=== PATIENT | male | born 1945 | race Caucasian/White ===

== ENCOUNTER 2016-11-28 14:00 | Inpatient (IN) | payer OTHER, MEDICARE ==
[~2016-11-28] VITALS: Ht 170.1 cm; Wt 74.6 kg
--- NOTE | ~2016-11-28 | PROC NOTE ---
[place], [place] PROCEDURE NOTE NAME: HARRY SCOTT [facility] #: [id number] UNIT #: [id number] ROOM: 508 DOCTOR: JORGE CORNELIUS BIRTHDATE: [birth year] DOS: 12/01/2016 MODIFIED BARIUM SWALLOW. LOCATION: [facility], room 508, bed 1. ORDERING PHYSICIAN: Dr. Laird. RADIOLOGIST: Dr. Alba. BACKGROUND INFORMATION: The patient, a 71-year-old male, who was seen for modified barium swallow. This test was ordered to rule out aspiration. The patient is diagnosed with pneumonia and severe sepsis. Further medical history includes angina enlarged prostate, blockages in legs, anxiety and DM. The patient was admitted to the Emergency Department with acute shortness of breath and coughing up blood. The patient currently receives a regular diet and thin liquids. The patient denies any difficulty chewing or swallowing. For the assessment, he was alert and able to follow all commands. Respiratory status was within normal limits. Occasional cough was displayed at rest. Oral peripheral examination revealed presence of upper and lower denture with adequate fit reported. Lingual, labial, and buccal skills were within normal limits in terms of strength, range of motion, and coordination. The patient was able to volitionally cough and swallow. METHODS AND MATERIALS USED FOR THE EXAM: The patient was positioned in the lateral plane and the examination was viewed under fluoroscopy. The patient was presented with a variety of consistencies to assess swallowing skills including applesauce mixed with barium presented in half teaspoon amounts, barium-coated cookie presented in bite sized pieces and thin liquid barium taken by cup. The patient swallowed in both single and consecutive sips sized amounts. Straw drinking was not assessed as the patient reported that he never uses a straw. ORAL PHASE: Unremarkable. PHARYNGEAL PHASE: The pharyngeal swallow occurred within a timely manner. the swallow, laryngeal elevation and epiglottic function were adequate. The patient displayed no penetration or aspiration with pureed, solid or thin liquid taken in single sip by cup. He did display transient upper airway penetration when consecutive sips by cup were taken. No residue remained in the vallecula or pyriform post-swallow. IMPRESSIONS AND RECOMMENDATIONS: Based upon assessment results, this patient displayed swallowing skills that are within functional limits. Transient upper airway penetration did occur with thin liquids when taken in consecutive sip size amounts. This did not occur with single sip or with any other consistency. No aspiration occurred during this exam. It is recommended that the patient remain on present diet and consume liquids in single sip size amount. No followup therapy is warranted. The patient was educated on results and recommendations and verbalized understanding and agreement stating that he is aware that he eats and drinks fast and will slow down with liquids. Results and [place], [place] PROCEDURE NOTE NAME: HARRY SCOTT UNIT #: [id number] ROOM: 508 DOCTOR: JORGE CORNELIUS BIRTHDATE: [birth year] recommendations were also shared with the patient's nurse who verbalized understanding. Thank you very much for this referral. Should you have any questions regarding this patient, please contact the speech pathologist at [phone]. JORGE CORNELIUS NATHALY LAIRD DO CM:PROCNOTE:PROCEDURE NOTE [id number] JORGE CORNELIUS
--- NOTE | ~2016-11-28 | PR ---
[place], [place] PROGRESS NOTE [facility] [id number] UNIT #: [id number] ROOM: 508 DOCTOR: CATALINA ESPOSITO MD,EDU BIRTHDATE: [birth year] DOS: 12/01/2016 SUBJECTIVE: He continued to show reduction and improvement of respiratory symptom. Coughing has been noted almost absent. Shortness of breath has been absent. Denies symptoms of chest pain. OBJECTIVE: VITAL SIGNS: Recorded showed normal temperature, respirations 16, heart rate of 86, blood pressure 135/58 this morning. Pulse oxygen saturation on room air 95% saturation. HEENT: Examination shows no new change. NECK: Supple. CARDIOVASCULAR: S1, S2 audible. LUNGS: Shows crackles in the lungs on the left side. Right lung was clear. ABDOMEN: Soft, nontender. LABORATORY DATA: CBC that was done this morning shows WBC count normal, hemoglobin 10.2, hematocrit 31.5, platelet count was normal. The culture of the sputum, normal kayla. BMP this morning noted as normal BUN and creatinine and electrolytes. Chest x-ray of the patient that was done this morning for the patient shows the infiltration, has been decreasing in the left lung but not completely resolved. IMPRESSION: Acute pneumonia secondary to acute aspiration during colonoscopy, currently being treated and responding to treatment for the gram-positive infection. PLAN OF MANAGEMENT: The patient could be discharged home whenever necessary on oral Augmentin ____ medication for the completion of the management of the pneumonia. Continue other supportive therapy, plan of care and treatment. Usual medical management with other therapies. EDU ARNOLD MD CM:PNTRANS [id number] EDU ESPOSITO MD 12/01/16 1556 interface
--- NOTE | ~2016-11-28 | PR ---
[place], [place] PROGRESS NOTE NAME: HARRY SCOTT [facility] #: [id number] UNIT #: [id number] ROOM: 508 DOCTOR: CATALINA ESPOSITO MDEDU BIRTHDATE: [birth year] DOS: 11/29/2016 REQUESTING PHYSICIAN: Hospitalist services for the assessment of current acute respiratory symptoms with the pneumonia. HISTORY OF PRESENT ILLNESS: A 71-year-old white male, who has been noted in his usual state of health. The patient underwent colonoscopy in one of the hospitals in [place], [place]. He came home. The patient has been doing well. About 48 hours later, he developed symptoms of severe chills and shortness of breath as well as a nonproductive cough. The patient was advised by his daughter, who is a nurse to come to the [facility] Emergency Room. The patient came to the Emergency Room. He has been assessed and hospitalized at this time. The patient was noted with symptoms of shortness breath for this patient, which were noted significantly. He denies symptoms of chest pain. The patient does complain of symptoms of hemoptysis, which was noted only small amount for this patient, has been resolved at this time. He denies any symptoms of wheezing. REVIEW OF SYSTEMS: CONSTITUTIONAL: Fatigue and tiredness noted without symptoms of fever or chills. EYES: Denies any burning, redness, or tenderness. EARS, NOSE, THROAT SYMPTOMS: No sore throat, hoarseness, otalgia, postnasal drainage or epistaxis. CARDIOVASCULAR: Denies anginal pain, edema or pain of the lower extremities. GASTROINTESTINAL: Denies dysphagia, nausea, vomiting, diarrhea, abdominal pain, hematemesis, melena, or hematochezia. SKIN: Denies any lesions or rashes. MUSCULOSKELETAL: Denies acute joint pain, redness or tenderness. CENTRAL NERVOUS SYSTEM: Denies dizziness, headache, diplopia or syncopal episodes. Remaining systems were reviewed with the patient, they were noted all negative. PAST MEDICAL HISTORY: 1. The patient was known with history of BPH. 2. Type 2 diabetes mellitus. 3. Essential hypertension. SOCIAL HISTORY: The patient stated that he is and has 5 children. Smoking history was known from the age of [age] years old, a pack of cigarettes per day that was discontinued in year 1999. Denies any history of alcohol use or any illicit drugs. Denies occupation related pulmonary exposure history. FAMILY HISTORY: Mother at the age of 9090 years old from old age. Father at age of 7373 years old, complications of colon cancer. ALLERGIES: The drug allergy history was noted for the patient as no known drug allergies. [place], [place] PROGRESS NOTE NAME: HARRY SCOTT UNIT #: [id number] ROOM: 508 DOCTOR: CATALINA ESPOSITO MD,EDU BIRTHDATE: [birth year] MEDICATIONS: Currently, administered medications noted use of Mucinex, Lovenox 80 mg b.i.d., DuoNeb, Levaquin every 48 hours, Xanax and other p.r.n. medications administration. PHYSICAL EXAMINATION: GENERAL: A 71-year-old white male who has been currently noted comfortably sitting on the side of the bed without any distress at the time of the assessment. The patient's height was recorded 5 feet 7 inches, weight 164 pounds, BMI 25.7. VITAL SIGNS: Shows a normal temperature, respiratory rate 18. The heart rate of 130-101 beats per minute. The blood pressure noted as 81/69-135/66. HEENT: Oral mucosa noted moist. NECK: Supple. Head was atraumatic. CARDIOVASCULAR: S1, S2 audible. LUNGS: Showed decreased breath sounds and the patient was noted with scattered crackles in the left lung. The right lung was noted clear. There was no wheezing. ABDOMEN: Soft, nontender and flat. EXTREMITIES: Showed no edema, clubbing or cyanosis. LABORATORY DATA: CBC on admission, for the patient on 11/28/2016 showed WBC count 5.4, hemoglobin 11.2, hematocrit 35.5, platelet count of 167,000 with 85% segmented neutrophil. Lactic acid noted 4.2 and subsequent lactic acid was noted normal within 24 hours. The CMP of the patient that was done on 11/28/2016, BUN 29, creatinine 1.88, glucose 218. Remaining CMP was normal. Troponin for the patient first set yesterday was noted as normal. BMP of the patient that was done this morning, BUN 27, creatinine 1.40, glucose was noted as 121. Phosphorus 2.2, magnesium 1.3. PT/PTT this morning were noted as INR 1.4, PTT of 38.7. CBC this morning, WBC count 7.7, hemoglobin 9.3, hematocrit 28.4, platelet count 116,000. Culture of the sputum for the patient was pending. Gram Stain which was done this morning, many white blood cells, moderate epithelial cells, many gram-positive cocci in pairs and clusters, few gram-negative bacilli. The patient had a CT scan of the abdomen done on 11/28/2016 for the patient was reviewed, does not show any acute intraabdominal pathology. Area of consolidation, infiltration in the left lower lobe was noted. A small pleural fluid was also noted. The chest x-ray of the patient that was done on 11/28/2016 shows evidence of infiltration noted in the left lung. CT of the chest for the patient was also done for this patient this morning at 10:35, was personally reviewed. There was no evidence of pulmonary embolism noted in the major pulmonary arterial branches. The patient was noted with significant infiltration with alveolar filling for this patient as well as consolidation present predominantly on the left side of the lung with multilobar involvement. A small left pleural fluid in the patient was also noted. Some changes of emphysema for the patient was also noted for the patient with centrilobular emphysema in the upper lung. A small patchy infiltration noted in the right lung. IMPRESSION: 1. The patient who has been currently admitted to the hospital with signs and [place], [place] PROGRESS NOTE [facility]: [id number] UNIT #: [id number] ROOM: 508 DOCTOR: EDU DE SANTIAGO MD BIRTHDATE: [birth year] symptoms consistent with acute severe sepsis with multiorgan involvement. The patient in hypertension with acute kidney injury and aspiration pneumonia. The aspiration pneumonia, most likely has occurred as the patient related in the lateral body position for this patient and was given conscious sedation with colonoscopy. The sinus symptoms classically occur for this patient after 24 hours of the procedure completion with acute bacterial pneumonia at this time was suspected. 2. Small pleural fluid related to current bacteremia, acute pneumonia. Thrombocytopenia was also noted in the CBC today as 116,000 platelet count related to the underlying acute sepsis. 3. Lactic acidosis secondary to the current hypertension and acute severe sepsis. PLAN OF MANAGEMENT: There was no evidence of pulmonary embolism for this patient. The electrocardiogram of the patient shows essentially sinus tachycardia with incomplete left bundle branch block for this patient. Some ST segment elevation was also noted, but the troponin was noted as negative. The Lovenox, which was given therapeutic with suspicion of pulmonary embolism, will be discontinued and switched only deep vein thrombosis prophylaxis range. Mild hemoptysis, sputum in the patient noted secondary to current acute pneumonia as well. Pleural fluid was noted small at this time, would not require any intervention for this patient, which will be monitored and assessment with the chest x-ray of the patient. Obtain a chest x-ray tomorrow morning. Readjusted dose of the Levaquin for the patient because of the improvement in the kidney functions noted changes to once a day dosing. Monitor results of the sputum culture and blood cultures. Usual care, other supportive therapy, plan of management. Ordered the streptococcal antigen of the urine for the patient as well as the legionella antigen. Oxygen supplementation if necessary to maintain a saturation of 92% or greater. Usual care, other supportive therapy, plan of management. Thanks for allowing me to participate in the care of this patient. [place], [place] PROGRESS NOTE [facility]: [facility]: [id number] UNIT #: [id number] ROOM: 508 DOCTOR: EDU DE SANTIAGO MD BIRTHDATE: [birth year] EDU ARNOLD MD CM:PNTRANS [id number] EDU ESPOSITO MD 11/30/16 1350 interface
--- NOTE | ~2016-11-28 | PR ---
[place], [place] PROGRESS NOTE NAME: HARRY SCOTT UNIT #: [id number] ROOM: 508 DOCTOR: EDU DE SANTIAGO MD BIRTHDATE: [birth year] DOS: 11/30/2016 PULMONARY FOLLOWUP SUBJECTIVE: He has been ambulating showing reduction of the respiratory symptom. Denies symptoms of chest pain. Denies any abdominal pain. Denies any wheezing. OBJECTIVE: VITAL SIGNS: Showed a temperature noted as 100.6 degrees Fahrenheit at midnight. Respiratory rate 18-22, heart rate 105-116, blood pressure 110/68-100/68. Pulse oxygen saturation on room air was 96% saturation. HEENT: Examination shows no new change. NECK: Supple. CARDIOVASCULAR: S1, S2 is audible. LUNGS: The patient noted scattered crackles of the left lung. There was no wheezing. ABDOMEN: Soft, nontender. LABORATORY DATA: Blood culture from the 11/28/2016 does not show any bacterial growth. Culture of the sputum preliminary showing normal kayla. The Gram stain shows many white blood cells, moderate epithelial cells, many gram-positive cocci in pairs and clusters with rare gram-negative bacilli. The CMP of the patient that was done this morning shows normal BUN and creatinine. Potassium noted mildly decreased at 3.4. CBC, mild anemia, otherwise noted stable. IMPRESSION: The patient without an acute pneumonia was noted secondary to acute aspiration. Allergic drug reaction was also considered. PLAN OF MANAGEMENT: Continuation of current antibiotics. Monitor culture results of the sputum. Obtain a chest x-ray in the morning for this patient to reassess prior to consider possible home discharge on oral antibiotics. Other supportive therapy, plan of management and care. [place], [place] PROGRESS NOTE NAME: HARRY SCOTT UNIT #: [id number] ROOM: 508 DOCTOR: EDU DE SANTIAGO MD BIRTHDATE: [birth year] EDU ARNOLD MD CM:PNTRANS [id number] EDU ESPOSITO MD 12/01/16 0640 interface
--- NOTE | ~2016-11-28 | EKG ---
[place], [place] ELECTROCARDIOGRAM REPORT NAME: HARRY SOCTT UNIT #: [id number] ROOM: 508 DOCTOR: CATALINA ESPOSITO MD,EDU BIRTHDATE: [birth year] DOS: 11/28/2016 ELECTROCARDIOGRAM The underlying rhythm noted as normal sinus rhythm with heart rate of 121 beats per minute. Possibility of incomplete left bundle branch block for this patient being considered. Elevation in the ST segment in V1, V2 and V3, unknown clinical significance. Nonspecific ST-T changes were also noted as well. Clinical correlation would be advised. EDU ARNOLD MD CM:EKGRPT:ELECTROCARDIOGRAM REPORT [id number] EDU ESPOSITO MD
[2016-11-28 14:00] VITALS: BP 104/52
[~2016-11-28 14:00] MED LIST: ATIVAN1 MG PO; DAYPRO600 M1 PO; LEVAQUIN750 MG PO; [UNRECOGNIZED DRUG - REMARK]
[2016-11-28 14:41] LABS: HEMATOCRIT 35.5 % (42.0-52.0); HEMOGLOBIN 11.3 g/dl (14.0-18.0); MEAN CELL VOLUME 85.7 fl (80.0-94.0); MEAN CORPUSCULAR HGB 27.3 pg (27.0-31.0); MEAN CORPUSCULAR HGB CONC 31.8 g/dl (33.0-37.0); MEAN PLATELET VOLUME 10.5 fl (9.6-12.3); PLATELET COUNT AUTOMATED 167 10*3/uL (130-400); RED BLOOD COUNT 4.14 10*6/uL (4.50-5.90); RED CELL DISTRI WIDTH 14.3 % (0-14.5); WHITE BLOOD COUNT 5.4 10*3/uL (4.8-10.8)
[2016-11-28 14:57] VITALS: BP 86/53
[2016-11-28 14:58] LABS: ALBUMIN 3.2 gm/dl (3.1-4.5); CREATININE 1.88 mg/dL (0.70-1.30); POTASSIUM 4.5 mmol/L (3.5-5.1); TOTAL PROTEIN 6.3 gm/dL (6.4-8.2)
[2016-11-28 14:59] LABS: TROPONIN I 0.034 ng/ml (<0.045)
[2016-11-28 15:08] LABS: OVALOCYTES FEW; PLATELET SUFFICIENCY NORMAL (NORMAL); TOTAL CELLS COUNTED 100 #CELLS
[2016-11-28 15:09] LABS: BURR CELLS FEW
[2016-11-28 16:10] VITALS: BP 86/50
[2016-11-28 16:12] VITALS: BP 81/69
[2016-11-28 17:15] VITALS: BP 102/52
[2016-11-28 20:00] VITALS: BP 117/59
[2016-11-29] VITALS: BP 93/71
[2016-11-29 06:07] LABS: BUN 27 mg/dl (7-24); CHLORIDE 110 mmol/L (98-107); MAGNESIUM 1.3 mg/dL (1.5-2.1); PHOSPHOROUS 2.2 mg/dL (2.5-4.9); POTASSIUM 4.1 mmol/L (3.5-5.1); SODIUM 139 mmol/L (136-145)
[2016-11-29 06:16] LABS: HEMOGLOBIN 9.3 g/dl (14.0-18.0); MEAN CELL VOLUME 85.3 fl (80.0-94.0); MEAN CORPUSCULAR HGB 27.9 pg (27.0-31.0); MEAN CORPUSCULAR HGB CONC 32.7 g/dl (33.0-37.0); MEAN PLATELET VOLUME 11.8 fl (9.6-12.3); RED BLOOD COUNT 3.33 10*6/uL (4.50-5.90); RED CELL DISTRI WIDTH 14.7 % (0-14.5); WHITE BLOOD COUNT 7.7 10*3/uL (4.8-10.8)
[2016-11-29 06:18] LABS: HEMATOCRIT 28.4 % (42.0-52.0); PLATELET COUNT AUTOMATED 116 10*3/uL (130-400)
[2016-11-29 06:20] LABS: ACT PARTIAL THROMBO TIME 38.7 SECONDS (20.8-31.5); INTERNATIONAL NORM RATIO 1.4 (2.0-3.5)
[2016-11-29 06:46] LABS: PLATELET SUFFICIENCY LOW (NORMAL); TOTAL CELLS COUNTED 100 #CELLS; VITAMIN D, 25-HYDROXY 38.8 ng/mL (30-100)
[2016-11-29 07:38] VITALS: BP 106/65; BP 110/70; BP 139/71
[2016-11-29 11:44] VITALS: BP 135/66
[2016-11-29 16:00] VITALS: BP 136/64
[2016-11-29] MEDS ORDERED: ASPIRIN ADULT L81 M1 PO (17:31)
[2016-11-29] MEDS ORDERED: OMEPRAZOLE20 M2 PO (17:32)
[2016-11-29] MEDS ORDERED: TERAZOSIN HCL5 M1 PO (17:33)
[2016-11-29] MEDS ORDERED: ZESTRIL10 MG PO (17:33)
[2016-11-29] MEDS ORDERED: SIMVASTATIN80 MG PO (17:34)
[2016-11-29] MEDS ORDERED: CILOSTAZOL100 MG PO (17:34)
[2016-11-29] MEDS ORDERED: GLUCOPHAGE500 M1 PO (17:35)
[2016-11-29] MEDS ORDERED: NOVOLIN 70100 UNIT/1 SC (17:41)
[2016-11-29 20:00] VITALS: BP 132/85
[2016-11-30] VITALS: BP 147/59
[2016-11-30 06:35] LABS: BASO % 0.2 % (0.0-1.0); EOS % 0.2 % (1.0-4.0); HEMATOCRIT 30.7 % (42.0-52.0); HEMOGLOBIN 9.9 g/dl (14.0-18.0); LYMPH # 0.7 10*3/uL (1.3-4.4); LYMPH % 7.7 % (27.0-41.0); MEAN CELL VOLUME 84.8 fl (80.0-94.0); MEAN CORPUSCULAR HGB 27.3 pg (27.0-31.0); MEAN CORPUSCULAR HGB CONC 32.2 g/dl (33.0-37.0); MEAN PLATELET VOLUME 11.9 fl (9.6-12.3); MONO # 0.6 10*3/uL (0.1-1.0); MONO % 7.3 % (3.0-9.0); NEUT # 7.3 10*3/uL (2.3-7.9); NEUT % 82.9 % (47.0-73.0); PLATELET COUNT AUTOMATED 138 10*3/uL (130-400); RED BLOOD COUNT 3.62 10*6/uL (4.50-5.90); RED CELL DISTRI WIDTH 15.1 % (0-14.5); WHITE BLOOD COUNT 8.8 10*3/uL (4.8-10.8)
[2016-11-30 07:06] LABS: ALBUMIN 2.8 gm/dl (3.1-4.5); ALKALINE PHOSPHATASE 51 U/L (45-117); BUN 19 mg/dl (7-24); CHLORIDE 107 mmol/L (98-107); CREATININE 1.17 mg/dL (0.70-1.30); POTASSIUM 3.4 mmol/L (3.5-5.1); SGOT/AST 12 IU/L (3-35); SGPT/ALT 15 U/L (12-78); SODIUM 139 mmol/L (136-145); TOTAL PROTEIN 6.2 gm/dL (6.4-8.2)
[2016-11-30 08:00] VITALS: BP 100/68
[2016-11-30 12:00] VITALS: BP 110/68
[2016-11-30 16:00] VITALS: BP 100/60
[2016-11-30 20:00] VITALS: BP 122/71
[2016-12-01] VITALS: BP 139/63
[2016-12-01 07:08] LABS: BASO % 0.4 % (0.0-1.0); EOS # 0.2 10*3/uL (0.0-0.4); EOS % 1.9 % (1.0-4.0); HEMATOCRIT 31.5 % (42.0-52.0); HEMOGLOBIN 10.3 g/dl (14.0-18.0); LYMPH # 0.9 10*3/uL (1.3-4.4); LYMPH % 10.8 % (27.0-41.0); MEAN CELL VOLUME 85.6 fl (80.0-94.0); MEAN CORPUSCULAR HGB CONC 32.7 g/dl (33.0-37.0); MEAN PLATELET VOLUME 11.4 fl (9.6-12.3); MONO # 0.4 10*3/uL (0.1-1.0); MONO % 5.4 % (3.0-9.0); NEUT # 6.4 10*3/uL (2.3-7.9); NEUT % 80.6 % (47.0-73.0); PLATELET COUNT AUTOMATED 170 10*3/uL (130-400); RED BLOOD COUNT 3.68 10*6/uL (4.50-5.90); RED CELL DISTRI WIDTH 15.1 % (0-14.5); WHITE BLOOD COUNT 7.9 10*3/uL (4.8-10.8)
[2016-12-01 07:31] LABS: CHLORIDE 108 mmol/L (98-107); SODIUM 139 mmol/L (136-145)
[2016-12-01 07:48] LABS: BUN 21 mg/dl (7-24); CREATININE 1.17 mg/dL (0.70-1.30)
[2016-12-01 07:52] LABS: POTASSIUM 4.7 mmol/L (3.5-5.1)
[2016-12-01 08:00] VITALS: BP 135/58
[2016-12-01] MEDS ORDERED: LEVAQUIN750 M1 PO (10:32)
[2016-12-01] MEDS ORDERED: MUCINEX ER600 MG PO (10:33)
== END 2016-12-01 12:00 | disposition home or self-care (01) | DRG 871 ==
LOC: ED 14:00 → 5E 15:21 → EDHOLD 15:21 → 5E 15:33
PROVIDERS: Emergency Medicine; Internal Medicine; ADMIT Internal Medicine
PROC: BD1BYZZ Fluoroscopy of Mouth/Oropharynx using Other Contrast (ICD-10-PCS; principal; 2016-12-01)
DX: A41.9 Sepsis, unspecified organism (principal); J69.0 Pneumonitis due to inhalation of food and vomit; N17.0 Acute kidney failure with tubular necrosis; E44.0 Moderate protein-calorie malnutrition; E87.2 Acidosis; E11.65 Type 2 diabetes mellitus with hyperglycemia; D69.6 Thrombocytopenia, unspecified; R65.20 Severe sepsis without septic shock; D64.9 Anemia, unspecified; E83.42 Hypomagnesemia; N40.0 Benign prostatic hyperplasia without lower urinary tract symptoms; F13.10 Sedative, hypnotic or anxiolytic abuse, uncomplicated; I10 Essential (primary) hypertension; Z80.0 Family history of malignant neoplasm of digestive organs; Z82.0 Family history of epilepsy and other diseases of the nervous system; Z79.4 Long term (current) use of insulin; Z68.25 Body mass index [BMI] 25.0-25.9, adult

== ENCOUNTER → 2016-12-18 | Outpatient (CLI) | payer OTHER, MEDICARE ==
[~2016-12-18] MED LIST changes: +ASPIRIN ADULT L81 M1 PO; +CILOSTAZOL100 MG PO; +GLUCOPHAGE500 M1 PO; +LEVAQUIN750 M1 PO; +MUCINEX ER600 MG PO; +NOVOLIN 70100 UNIT/1 SC; +OMEPRAZOLE20 M2 PO; +SIMVASTATIN80 MG PO; +TERAZOSIN HCL5 M1 PO; +ZESTRIL10 MG PO
== END | disposition home or self-care (01) ==
LOC: US 12:37
DX: R94.6 Abnormal results of thyroid function studies (principal)

== ENCOUNTER 2017-04-23 13:09 | Emergency (ER) | payer OTHER, MEDICARE ==
[~2017-04-23] VITALS: Ht 170.1 cm; Wt 74.8 kg
[2017-04-23 13:15] VITALS: BP 152/66
[2017-04-23] MEDS ORDERED: Tobrex Ophth S2.5 ML OPH (13:21)
== END 2017-04-23 13:30 | disposition home or self-care (01) ==
LOC: ED 13:09
DX: S05.02XA Injury of conjunctiva and corneal abrasion without foreign body, left eye, initial encounter (principal); E11.65 Type 2 diabetes mellitus with hyperglycemia; I10 Essential (primary) hypertension; Z87.891 Personal history of nicotine dependence; Z98.890 Other specified postprocedural states; Z79.899 Other long term (current) drug therapy; Z79.4 Long term (current) use of insulin; Z79.82 Long term (current) use of aspirin; X58.XXXA Exposure to other specified factors, initial encounter; Y93.89 Activity, other specified; Y92.89 Other specified places as the place of occurrence of the external cause; Y99.9 Unspecified external cause status

== ENCOUNTER 2020-10-24 18:56 | Inpatient (IN) | payer MEDICARE ==
[2020-10-24] VITALS (9 sets, daily range): BP systolic 86–166; BP diastolic 42–88
[~2020-10-24] VITALS: Ht 167.6 cm; Wt 68.2 kg
[~2020-10-24 18:56] MED LIST changes: +DOXYCYCLINE100 M3 PO; +HYDROCODONE-AC1 EAC1 PO; +LOPRESSOR25 MG PO; +SSD25 GM T; +TADALAFIL20 M1 PO; +Tobrex Ophth S2.5 ML OPH
[2020-10-24 19:55] LABS: BASO % 0.2 % (0.0-1.0); EOS # 0.1 10*3/uL (0.0-0.4); EOS % 0.6 % (1.0-4.0); HEMATOCRIT 27.2 % (42.0-52.0); LYMPH # 0.4 10*3/uL (1.3-4.4); LYMPH % 4.8 % (27.0-41.0); MEAN CELL VOLUME 82.2 fl (80.0-94.0); MEAN CORPUSCULAR HGB 24.8 pg (27.0-31.0); MEAN CORPUSCULAR HGB CONC 30.1 g/dl (33.0-37.0); MEAN PLATELET VOLUME 10.7 fl (9.6-12.3); MONO # 0.5 10*3/uL (0.1-1.0); MONO % 5.7 % (3.0-9.0); NEUT # 8.1 10*3/uL (2.3-7.9); NEUT % 87.8 % (47.0-73.0); PLATELET COUNT AUTOMATED 185 10*3/uL (130-400); RED BLOOD COUNT 3.31 10*6/uL (4.50-5.90); RED CELL DISTRI WIDTH 15.8 % (0-14.5); WHITE BLOOD COUNT 9.3 10*3/uL (4.8-10.8)
[2020-10-24 20:25] LABS: ALBUMIN 2.9 gm/dl (3.1-4.5); ALKALINE PHOSPHATASE 57 U/L (45-117); BUN 59 mg/dl (7-24); CHLORIDE 109 mmol/L (98-107); CREATININE 2.45 mg/dL (0.70-1.30); POTASSIUM 5.2 mmol/L (3.5-5.1); SGOT/AST 10 IU/L (3-35); SGPT/ALT 15 U/L (12-78); SODIUM 135 mmol/L (136-145); TOTAL PROTEIN 6.4 gm/dL (6.4-8.2)
[2020-10-24 20:26] LABS: TROPONIN I < 0.015 ng/ml (<0.045)
[2020-10-24 21:01] LABS: BILIRUBIN Negative (Negative); BLOOD Trace-Intact (Negative); CLARITY Cloudy (Clear); COLOR Yellow (Yellow); GLUCOSE Negative (Negative); KETONE Trace (Negative); LEUKO ESTERASE 3+ (Negative); NITRITE Negative (Negative); SPECIFIC GRAVITY 1.015 (1.001-1.030)
[2020-10-24 21:25] LABS: BACTERIA 2+; WBC 41-50 wbc/hpf (0-5); YEAST 1+
[2020-10-25 06:20] LABS: ALBUMIN 2.5 gm/dl (3.1-4.5); POTASSIUM 4.6 mmol/L (3.5-5.1)
[2020-10-25 06:26] LABS: CREATININE 1.88 mg/dL (0.70-1.30); FREE T4 1.42 ng/dl (0.76-1.46); THYROID STIM HORMONE (HS) 0.26 uIU/ml (0.358-4.75); TOTAL PROTEIN 5.8 gm/dL (6.4-8.2)
[2020-10-25 06:36] LABS: BASO % 0.4 % (0.0-1.0); EOS # 0.1 10*3/uL (0.0-0.4); HEMATOCRIT 24.3 % (42.0-52.0); LYMPH # 0.7 10*3/uL (1.3-4.4); LYMPH % 13.9 % (27.0-41.0); MEAN CELL VOLUME 82.1 fl (80.0-94.0); MEAN CORPUSCULAR HGB 24.3 pg (27.0-31.0); MEAN CORPUSCULAR HGB CONC 29.6 g/dl (33.0-37.0); MEAN PLATELET VOLUME 11.7 fl (9.6-12.3); MONO # 0.3 10*3/uL (0.1-1.0); MONO % 6.8 % (3.0-9.0); NEUT # 3.8 10*3/uL (2.3-7.9); NEUT % 75.9 % (47.0-73.0); PLATELET COUNT AUTOMATED 175 10*3/uL (130-400); RED BLOOD COUNT 2.96 10*6/uL (4.50-5.90); RED CELL DISTRI WIDTH 15.8 % (0-14.5)
[2020-10-25 08:36] LABS: VITAMIN D, 25-HYDROXY 69.3 ng/mL (30-100)
[2020-10-25 09:28] VITALS: BP 124/59
[2020-10-25 11:38] VITALS: BP 141/66
[2020-10-25 16:22] VITALS: BP 131/61
[2020-10-25 20:00] VITALS: BP 139/67
[2020-10-26] VITALS (7 sets, daily range): BP systolic 92–196; BP diastolic 67–82
[2020-10-26 06:32] LABS: BASO % 0.5 % (0.0-1.0); EOS # 0.1 10*3/uL (0.0-0.4); EOS % 3.4 % (1.0-4.0); HEMATOCRIT 26.2 % (42.0-52.0); LYMPH % 25.5 % (27.0-41.0); MEAN CELL VOLUME 82.1 fl (80.0-94.0); MEAN CORPUSCULAR HGB 24.5 pg (27.0-31.0); MEAN CORPUSCULAR HGB CONC 29.8 g/dl (33.0-37.0); MEAN PLATELET VOLUME 11.2 fl (9.6-12.3); MONO # 0.5 10*3/uL (0.1-1.0); MONO % 13.1 % (3.0-9.0); NEUT # 2.2 10*3/uL (2.3-7.9); PLATELET COUNT AUTOMATED 212 10*3/uL (130-400); RED BLOOD COUNT 3.19 10*6/uL (4.50-5.90); RED CELL DISTRI WIDTH 15.6 % (0-14.5); WHITE BLOOD COUNT 3.9 10*3/uL (4.8-10.8)
[2020-10-26 06:48] LABS: ALBUMIN 2.7 gm/dl (3.1-4.5); ALKALINE PHOSPHATASE 60 U/L (45-117); CHLORIDE 114 mmol/L (98-107); CREATININE 1.32 mg/dL (0.70-1.30); POTASSIUM 4.7 mmol/L (3.5-5.1); SGOT/AST 16 IU/L (3-35); SGPT/ALT 22 U/L (12-78); SODIUM 140 mmol/L (136-145); TOTAL PROTEIN 6.2 gm/dL (6.4-8.2)
[2020-10-26 06:51] LABS: BUN 30 mg/dl (7-24)
[2020-10-27 03:45] VITALS: BP 187/75
[2020-10-27 06:00] VITALS: BP 172/66
[2020-10-27 06:35] LABS: BASO % 0.6 % (0.0-1.0); EOS # 0.1 10*3/uL (0.0-0.4); EOS % 2.1 % (1.0-4.0); HEMATOCRIT 28.1 % (42.0-52.0); LYMPH # 1.1 10*3/uL (1.3-4.4); LYMPH % 21.3 % (27.0-41.0); MEAN CELL VOLUME 81.2 fl (80.0-94.0); MEAN CORPUSCULAR HGB 24.3 pg (27.0-31.0); MEAN CORPUSCULAR HGB CONC 29.9 g/dl (33.0-37.0); MEAN PLATELET VOLUME 10.8 fl (9.6-12.3); MONO # 0.6 10*3/uL (0.1-1.0); MONO % 10.7 % (3.0-9.0); NEUT # 3.4 10*3/uL (2.3-7.9); NEUT % 63.4 % (47.0-73.0); PLATELET COUNT AUTOMATED 220 10*3/uL (130-400); RED BLOOD COUNT 3.46 10*6/uL (4.50-5.90); RED CELL DISTRI WIDTH 15.6 % (0-14.5); WHITE BLOOD COUNT 5.3 10*3/uL (4.8-10.8)
[2020-10-27 06:46] LABS: BUN 21 mg/dl (7-24); CHLORIDE 109 mmol/L (98-107); CREATININE 1.11 mg/dL (0.70-1.30); POTASSIUM 4.3 mmol/L (3.5-5.1); SODIUM 141 mmol/L (136-145)
[2020-10-27 08:00] VITALS: BP 177/59
[2020-10-27 16:00] VITALS: BP 148/72; BP 161/72
[2020-10-27 20:00] VITALS: BP 189/78
[2020-10-27 21:19] VITALS: BP 210/90
[2020-10-28] VITALS: BP 172/78
[2020-10-28 06:36] LABS: BUN 15 mg/dl (7-24); CHLORIDE 110 mmol/L (98-107); CREATININE 0.93 mg/dL (0.70-1.30); POTASSIUM 4.3 mmol/L (3.5-5.1); SODIUM 137 mmol/L (136-145)
[2020-10-28 06:42] LABS: BASO % 0.6 % (0.0-1.0); EOS # 0.1 10*3/uL (0.0-0.4); EOS % 2.1 % (1.0-4.0); HEMATOCRIT 28.8 % (42.0-52.0); LYMPH # 1.3 10*3/uL (1.3-4.4); LYMPH % 24.7 % (27.0-41.0); MEAN CELL VOLUME 82.8 fl (80.0-94.0); MEAN CORPUSCULAR HGB 24.4 pg (27.0-31.0); MEAN CORPUSCULAR HGB CONC 29.5 g/dl (33.0-37.0); MEAN PLATELET VOLUME 11.4 fl (9.6-12.3); MONO # 0.7 10*3/uL (0.1-1.0); MONO % 12.8 % (3.0-9.0); NEUT # 3.1 10*3/uL (2.3-7.9); NEUT % 57.7 % (47.0-73.0); PLATELET COUNT AUTOMATED 234 10*3/uL (130-400); RED BLOOD COUNT 3.48 10*6/uL (4.50-5.90); RED CELL DISTRI WIDTH 15.7 % (0-14.5); WHITE BLOOD COUNT 5.3 10*3/uL (4.8-10.8)
[2020-10-28 08:00] VITALS: BP 179/75
[2020-10-28 12:00] VITALS: BP 178/67
[2020-10-28] MEDS ORDERED: ZITHROMAX500 MG PO (13:45)
[2020-10-28] MEDS ORDERED: OMNICEF300 MG PO (13:45)
[2020-10-28] MEDS ORDERED: METOPROLOL TART50 M1 PO (13:46)
== END 2020-10-28 14:04 | disposition home or self-care (01) | DRG 193 ==
LOC: ED 18:56 → 5E 21:36 → EDHOLD 21:36 → 5E 22:11
PROVIDERS: Emergency Medicine; Internal Medicine; Student in an Organized Health Care Education/Training Program; ADMIT Internal Medicine; ATTEND Internal Medicine
DX: J18.9 Pneumonia, unspecified organism (principal); N17.0 Acute kidney failure with tubular necrosis; E44.1 Mild protein-calorie malnutrition; L03.115 Cellulitis of right lower limb; E87.1 Hypo-osmolality and hyponatremia; L03.116 Cellulitis of left lower limb; E86.0 Dehydration; D50.9 Iron deficiency anemia, unspecified; E87.5 Hyperkalemia; R91.8 Other nonspecific abnormal finding of lung field; I95.9 Hypotension, unspecified; Z79.4 Long term (current) use of insulin; E87.8 Other disorders of electrolyte and fluid balance, not elsewhere classified; E11.65 Type 2 diabetes mellitus with hyperglycemia; N40.0 Benign prostatic hyperplasia without lower urinary tract symptoms; I10 Essential (primary) hypertension; R31.9 Hematuria, unspecified; E11.51 Type 2 diabetes mellitus with diabetic peripheral angiopathy without gangrene; Z87.891 Personal history of nicotine dependence; Z79.82 Long term (current) use of aspirin; Z79.899 Other long term (current) drug therapy; Z68.24 Body mass index [BMI] 24.0-24.9, adult

== ENCOUNTER 2023-02-20 16:44 | Emergency (ER) | payer OTHER ==
[~2023-02-20] VITALS: Ht 167.6 cm; Wt 71.2 kg
[~2023-02-20 16:44] MED LIST changes: +METOPROLOL TART50 M1 PO; +OMNICEF300 MG PO; +ZITHROMAX500 MG PO
[2023-02-20 17:23] VITALS: BP 154/60
[2023-02-20] MEDS ORDERED: CEPHALEXIN500 M1 PO (17:59)
== END 2023-02-20 18:05 | disposition home or self-care (01) ==
LOC: ED 16:44
DX: N48.29 Other inflammatory disorders of penis (principal); F41.9 Anxiety disorder, unspecified; E11.9 Type 2 diabetes mellitus without complications; Z98.890 Other specified postprocedural states; Z87.891 Personal history of nicotine dependence

== ENCOUNTER 2023-04-15 09:13 | Emergency (ER) | payer OTHER ==
[~2023-04-15] VITALS: Wt 72.6 kg
[~2023-04-15 09:13] MED LIST changes: +CEPHALEXIN500 M1 PO
[2023-04-15 09:25] VITALS: BP 147/71
[2023-04-15 09:58] LABS: BILIRUBIN Negative (Negative); BLOOD Negative (Negative); CLARITY Clear (Clear); COLOR Yellow (Yellow); GLUCOSE 3+ (Negative); KETONE Negative (Negative); LEUKO ESTERASE Trace (Negative); NITRITE Negative (Negative); SPECIFIC GRAVITY 1.025 (1.001-1.030); UROBILINOGEN 0.2 E.U./dl (0.0-1.0)
[2023-04-15 10:39] LABS: RBC 0-2 rbc/hpf (0-2); WBC 21-30 wbc/hpf (0-5)
[2023-04-15] MEDS ORDERED: ANTIFUNGAL113 GM T (11:02)
[2023-04-15] MEDS ORDERED: FLUONAZOLE150 M1 PO (11:02)
[2023-04-15] MEDS ORDERED: SEPTDS PO (11:02)
== END 2023-04-15 11:19 | disposition home or self-care (01) ==
LOC: ED 09:13
PROVIDERS: Family Medicine
DX: B37.49 Other urogenital candidiasis (principal); F41.9 Anxiety disorder, unspecified; E11.9 Type 2 diabetes mellitus without complications; Z98.890 Other specified postprocedural states; Z87.891 Personal history of nicotine dependence

== ENCOUNTER → 2023-11-24 | Outpatient (CLI) | payer OTHER ==
[~2023-11-24] MED LIST changes: +24 HOUR ALLER15.8 ML INH; +ANTIFUNGAL113 GM T; +ATHLETIC FOOT C30 GM T; +AUTOPEN1 EACH SQ; +DOXYCYCLINE HY100 M3 PO; +FINASTERIDE5 M1 PO; +FLUONAZOLE150 M1 PO; +INSULIN GL100 UNIT/1 SQ; +IOHEXOL 350 MG/ML 100 ML VIAL IV ONE; +LOSARTAN POTASS25 M1 PO; +NORVASC5 MG PO; +PEPCID AC20 MG PO; +PIOGLITAZONE HC30 MG PO; +ROSUVASTATIN CA10 MG PO; +SEPTDS PO; +SILDENAFIL CIT100 MG PO; +VIBRAMYCIN100 MG PO; +VITAMIN D325 MCG PO
== END | disposition home or self-care (01) ==
LOC: CT 10:33
PROVIDERS: ATTEND Urology
DX: N28.1 Cyst of kidney, acquired (principal); R31.9 Hematuria, unspecified; N40.0 Benign prostatic hyperplasia without lower urinary tract symptoms; E11.9 Type 2 diabetes mellitus without complications

== ENCOUNTER 2023-12-12 00:52 | Inpatient (IN) | payer OTHER ==
[~2023-12-12] VITALS: Ht 168 cm; Wt 73.0 kg
[~2023-12-12 00:52] MED LIST changes: -24 HOUR ALLER15.8 ML INH; -AUTOPEN1 EACH SQ; -DOXYCYCLINE HY100 M3 PO; -FINASTERIDE5 M1 PO; -INSULIN GL100 UNIT/1 SQ; -IOHEXOL 350 MG/ML 100 ML VIAL IV ONE; -LOSARTAN POTASS25 M1 PO; -NORVASC5 MG PO; -PEPCID AC20 MG PO; -PIOGLITAZONE HC30 MG PO; -ROSUVASTATIN CA10 MG PO; -SILDENAFIL CIT100 MG PO; -VITAMIN D325 MCG PO
[2023-12-12 01:05] VITALS: BP 140/87
[2023-12-12] MEDS ORDERED: ACETAMINOPHEN 325 MG TAB PO ONE (01:15)
[2023-12-12 01:42] LABS: BASO % 0.3 % (0.0-1.0); EOS % 0.2 % (1.0-4.0); HEMATOCRIT 37.6 % (42.0-52.0); LYMPH # 0.6 10*3/uL (1.3-4.4); MEAN CELL VOLUME 87.9 fl (80.0-94.0); MEAN CORPUSCULAR HGB 27.6 pg (27.0-31.0); MEAN CORPUSCULAR HGB CONC 31.4 g/dl (33.0-37.0); MEAN PLATELET VOLUME 11.2 fl (9.6-12.3); MONO # 0.9 10*3/uL (0.1-1.0); MONO % 8.7 % (3.0-9.0); NEUT # 8.9 10*3/uL (2.3-7.9); NEUT % 84.2 % (47.0-73.0); PLATELET COUNT AUTOMATED 182 10*3/uL (130-400); RED BLOOD COUNT 4.28 10*6/uL (4.50-5.90); RED CELL DISTRI WIDTH 15.6 % (0-14.5); WHITE BLOOD COUNT 10.6 10*3/uL (4.8-10.8)
[2023-12-12 02:00] LABS: POTASSIUM 4.7 mmol/L (3.4-5.1)
[2023-12-12] MEDS ORDERED: SODIUM CHLORIDE 0.9% 1,000 ML IV SCH (02:10)
[2023-12-12] MEDS ORDERED: Albuterol Sulf/Ipratropium 3 ML VIAL NEB ONE (02:10)
[2023-12-12] MEDS ORDERED: methylPREDNISolone sod succ 125 MG VIAL IV ONE (02:10)
[2023-12-12] MEDS ORDERED: AZITHROMYCIN 250 ML IV ONE (02:15)
[2023-12-12] MEDS ORDERED: Ceftriaxone Sodium 1 GM/10 ML SYR IV ONE (02:15)
[2023-12-12] MEDS ORDERED: Ondansetron Hydrochloride 4 MG/2 ML VIAL IV ONE (05:20)
[2023-12-12 08:08] VITALS: BP 133/71
[2023-12-12] MEDS ORDERED: LOSARTAN POTASS25 M1 PO (09:46)
[2023-12-12] MEDS ORDERED: ROSUVASTATIN CA10 MG PO (09:47)
[2023-12-12] MEDS ORDERED: 24 HOUR ALLER15.8 ML INH (09:47)
[2023-12-12] MEDS ORDERED: SILDENAFIL CIT100 MG PO (09:48)
[2023-12-12] MEDS ORDERED: FINASTERIDE5 M1 PO (09:49)
[2023-12-12] MEDS ORDERED: PEPCID AC20 MG PO (09:49)
[2023-12-12] MEDS ORDERED: AUTOPEN1 EACH SQ (09:51)
[2023-12-12] MEDS ORDERED: INSULIN GL100 UNIT/1 SQ (09:52)
[2023-12-12] MEDS ORDERED: PIOGLITAZONE HC30 MG PO (09:53)
[2023-12-12] MEDS ORDERED: VITAMIN D325 MCG PO (09:54)
[2023-12-12] MEDS ORDERED: BISACODYL 5 MG TAB PO PRN (10:25)
[2023-12-12] MEDS ORDERED: ACETAMINOPHEN 325 MG TAB PO PRN (10:25)
[2023-12-12] MEDS ORDERED: Ondansetron Hydrochloride 4 MG/2 ML VIAL IV PRN (10:25)
[2023-12-12] MEDS ORDERED: DEXTROSE 10 % IN WATER 250 ML IV PRN (11:50)
[2023-12-12 13:42] LABS: BILIRUBIN Negative (Negative); BLOOD 1+ (Negative); CLARITY Cloudy (Clear); COLOR Yellow (Yellow); GLUCOSE 3+ (Negative); KETONE Trace (Negative); LEUKO ESTERASE 2+ (Negative); NITRITE Negative (Negative); UROBILINOGEN 0.2 E.U./dl (0.0-1.0)
[2023-12-12 13:56] LABS: WBC TNTC wbc/hpf (0-5)
[2023-12-12] MEDS ORDERED: Albuterol Sulf/Ipratropium 3 ML VIAL NEB SCH (14:10)
[2023-12-12] MEDS ORDERED: INSULIN LISPRO 1 UNIT/0.01 ML SQ SCH (16:30)
[2023-12-12 19:22] VITALS: BP 131/61
[2023-12-12] MEDS ORDERED: FAMOTIDINE 20 MG TAB PO SCH (22:00)
[2023-12-12] MEDS ORDERED: ATORVASTATIN CALCIUM 10 MG TAB PO SCH (22:00)
[2023-12-13] VITALS (7 sets, daily range): BP systolic 130–158; BP diastolic 50–75
[2023-12-13] MEDS ORDERED: AZITHROMYCIN 250 ML IV SCH (06:00)
[2023-12-13] MEDS ORDERED: Ceftriaxone Sodium 10 ML IV SCH (07:00)
[2023-12-13 07:04] LABS: HEMATOCRIT 35.3 % (42.0-52.0); MEAN CELL VOLUME 86.9 fl (80.0-94.0); MEAN CORPUSCULAR HGB 27.3 pg (27.0-31.0); MEAN CORPUSCULAR HGB CONC 31.4 g/dl (33.0-37.0); MEAN PLATELET VOLUME 11.5 fl (9.6-12.3); PLATELET COUNT AUTOMATED 191 10*3/uL (130-400); RED BLOOD COUNT 4.06 10*6/uL (4.50-5.90); RED CELL DISTRI WIDTH 15.8 % (0-14.5); WHITE BLOOD COUNT 16.1 10*3/uL (4.8-10.8)
[2023-12-13 07:10] LABS: MANUAL DIFF REFLEX YES
[2023-12-13 07:44] LABS: BURR CELLS FEW; OVALOCYTES FEW; PLATELET SUFFICIENCY NORMAL (NORMAL); POLYCHROMASIA SLIGHT; TOTAL CELLS COUNTED 100 #CELLS
[2023-12-13 08:38] LABS: FREE T4 1.47 ng/dl (0.89-1.76); POTASSIUM 4.7 mmol/L (3.4-5.1)
[2023-12-13] MEDS ORDERED: SODIUM CHLORIDE 0.9% 1,000 ML IV ONE (09:30)
[2023-12-13] MEDS ORDERED: Vitamin D 1,000 IU TAB (25 MCG) PO SCH (10:00)
[2023-12-13] MEDS ORDERED: Losartan Potassium 25 MG TAB PO SCH (10:00)
[2023-12-13] MEDS ORDERED: FINASTERIDE 5 MG TAB PO SCH (10:00)
[2023-12-13] MEDS ORDERED: Albuterol Sulfate 2.5 MG/3 ML VIAL NEB PRN (13:45)
[2023-12-13] MEDS ORDERED: Albuterol Sulfate 2.5 MG/3 ML VIAL NEB SCH (14:00)
[2023-12-13] MEDS ORDERED: Ceftriaxone Sodium 2 GM in SYRINGE INFUSION 20 ML IV SCH (18:00)
[2023-12-13] MEDS ORDERED: Melatonin 5 MG TABLET PO PRN (19:05)
[2023-12-13] MEDS ORDERED: HEPARIN SODIUM 5,000 UNIT/ML VIAL SC SCH (22:00)
[2023-12-13] MEDS ORDERED: GUAIFENESIN 600 MG TAB ER PO SCH (22:00)
[2023-12-13] MEDS ORDERED: Insulin Glargine, Recombinan 1 UNIT/0.01 ML SC SCH (22:00)
[2023-12-14] VITALS: BP 138/57
[2023-12-14 05:37] LABS: POTASSIUM 4.8 mmol/L (3.4-5.1)
[2023-12-14 06:16] LABS: BASO % 0.1 % (0.0-1.0); EOS % 0.1 % (1.0-4.0); HEMATOCRIT 31.9 % (42.0-52.0); LYMPH # 0.7 10*3/uL (1.3-4.4); LYMPH % 8.5 % (27.0-41.0); MEAN CELL VOLUME 89.6 fl (80.0-94.0); MEAN CORPUSCULAR HGB 27.5 pg (27.0-31.0); MEAN CORPUSCULAR HGB CONC 30.7 g/dl (33.0-37.0); MEAN PLATELET VOLUME 11.3 fl (9.6-12.3); MONO # 0.6 10*3/uL (0.1-1.0); MONO % 7.9 % (3.0-9.0); NEUT # 6.4 10*3/uL (2.3-7.9); NEUT % 82.9 % (47.0-73.0); PLATELET COUNT AUTOMATED 167 10*3/uL (130-400); RED BLOOD COUNT 3.56 10*6/uL (4.50-5.90); RED CELL DISTRI WIDTH 15.9 % (0-14.5); WHITE BLOOD COUNT 7.7 10*3/uL (4.8-10.8)
[2023-12-14 08:00] VITALS: BP 153/64
[2023-12-14] MEDS ORDERED: Doxycycline Hyclate 100 MG in SODIUM CHLORIDE 0.9% 250 ML IV SCH (10:00)
[2023-12-14] MEDS ORDERED: DOXYCYCLINE HY100 M3 PO (11:54)
[2023-12-14] MEDS ORDERED: NORVASC5 MG PO (11:57)
[2023-12-15] MEDS ORDERED: ALBUTEROL S5 MG/1 ML INH ×2 (10:36)
== END 2023-12-14 13:57 | disposition home or self-care (01) | DRG 871 ==
LOC: ED 00:52 → EDHOLD 06:08 → 4E 12-13 17:46
PROVIDERS: Internal Medicine; Student in an Organized Health Care Education/Training Program; ADMIT Student in an Organized Health Care Education/Training Program; ATTEND Student in an Organized Health Care Education/Training Program
DX: A41.9 Sepsis, unspecified organism (principal); J69.0 Pneumonitis due to inhalation of food and vomit; N17.0 Acute kidney failure with tubular necrosis; E87.21 Acute metabolic acidosis; J44.1 Chronic obstructive pulmonary disease with (acute) exacerbation; N39.0 Urinary tract infection, site not specified; E87.1 Hypo-osmolality and hyponatremia; K21.9 Gastro-esophageal reflux disease without esophagitis; R65.20 Severe sepsis without septic shock; E86.0 Dehydration; N40.0 Benign prostatic hyperplasia without lower urinary tract symptoms; I10 Essential (primary) hypertension; E78.5 Hyperlipidemia, unspecified; E11.65 Type 2 diabetes mellitus with hyperglycemia; E11.51 Type 2 diabetes mellitus with diabetic peripheral angiopathy without gangrene; Z79.899 Other long term (current) drug therapy; Z79.4 Long term (current) use of insulin; Z79.01 Long term (current) use of anticoagulants; Z79.2 Long term (current) use of antibiotics; Z87.891 Personal history of nicotine dependence; Z80.0 Family history of malignant neoplasm of digestive organs; Z81.8 Family history of other mental and behavioral disorders

== ENCOUNTER → 2023-12-21 | Outpatient (CLI) | payer OTHER ==
[~2023-12-21] MED LIST changes: +24 HOUR ALLER15.8 ML INH; +ALBUTEROL S5 MG/1 ML INH; +AUTOPEN1 EACH SQ; +DOXYCYCLINE HY100 M3 PO; +FINASTERIDE5 M1 PO; +INSULIN GL100 UNIT/1 SQ; +LOSARTAN POTASS25 M1 PO; +NORVASC5 MG PO; +PEPCID AC20 MG PO; +PIOGLITAZONE HC30 MG PO; +ROSUVASTATIN CA10 MG PO; +SILDENAFIL CIT100 MG PO; +VITAMIN D325 MCG PO
[2023-12-21 15:34] LABS: HEMATOCRIT 39.5 % (42.0-52.0); MEAN CELL VOLUME 90.2 fl (80.0-94.0); MEAN CORPUSCULAR HGB 27.6 pg (27.0-31.0); MEAN CORPUSCULAR HGB CONC 30.6 g/dl (33.0-37.0); MEAN PLATELET VOLUME 10.3 fl (9.6-12.3); RED BLOOD COUNT 4.38 10*6/uL (4.50-5.90); RED CELL DISTRI WIDTH 15.9 % (0-14.5); WHITE BLOOD COUNT 8.3 10*3/uL (4.8-10.8)
[2023-12-21 15:55] LABS: POTASSIUM 4.7 mmol/L (3.4-5.1); TOTAL PROTEIN 7.2 gm/dL (6.0-8.0)
[2023-12-21 15:59] LABS: VITAMIN D, 25-HYDROXY 65.3 ng/mL (30-100)
[2023-12-22 08:10] LABS: HBSAG Negative (Negative); HEP B CORE AB, IGM Negative (Negative); HEPATITIS C ANTIBODY Non Reactive (Non Reactive)
== END | disposition home or self-care (01) ==
LOC: LAB 14:43
PROVIDERS: ATTEND Family Medicine
DX: I12.9 Hypertensive chronic kidney disease with stage 1 through stage 4 chronic kidney disease, or unspecified chronic kidney disease (principal); E11.22 Type 2 diabetes mellitus with diabetic chronic kidney disease; N18.30 Chronic kidney disease, stage 3 unspecified; D63.1 Anemia in chronic kidney disease; K21.00 Gastro-esophageal reflux disease with esophagitis, without bleeding; E55.9 Vitamin D deficiency, unspecified; R53.83 Other fatigue; N40.0 Benign prostatic hyperplasia without lower urinary tract symptoms; K59.00 Constipation, unspecified; B17.0 Acute delta-(super) infection of hepatitis B carrier

== ENCOUNTER → 2024-02-11 | Outpatient (CLI) | payer OTHER ==
[~2024-02-11] MED LIST changes: +LEVOFLOXACIN750 M2 PO; +Regadenoson 0.4 MG/5 ML SYR IV ONE; +Technetium Tc 99M Tetrofosmi 0.23 MG KIT IJ SCH
== END | disposition home or self-care (01) ==
LOC: CARD 01:28 → LAB 01:28 → CARD 08:30
PROVIDERS: ATTEND Internal Medicine
DX: R06.02 Shortness of breath (principal); I50.33 Acute on chronic diastolic (congestive) heart failure

== ENCOUNTER 2024-02-15 02:07 | Emergency (ER) | payer OTHER ==
[~2024-02-15] VITALS: Ht 172.7 cm; Wt 77.1 kg
[~2024-02-15 02:07] MED LIST changes: -Regadenoson 0.4 MG/5 ML SYR IV ONE; -Technetium Tc 99M Tetrofosmi 0.23 MG KIT IJ SCH
[2024-02-15 02:15] VITALS: BP 123/67
[2024-02-15] MEDS ORDERED: diphenhydrAMINE hydrochloride 50 MG/ML VIAL IV ONE (02:35)
[2024-02-15] MEDS ORDERED: FAMOTIDINE 50 ML IV ONE (02:35)
[2024-02-15] MEDS ORDERED: Dexamethasone Sodium Phospha 20 MG/5 ML VIAL IV ONE (02:35)
== END 2024-02-15 03:27 | disposition home or self-care (01) ==
LOC: ED 02:07
DX: R06.02 Shortness of breath (principal); R25.3 Fasciculation; T43.595A Adverse effect of other antipsychotics and neuroleptics, initial encounter; F41.9 Anxiety disorder, unspecified; E11.9 Type 2 diabetes mellitus without complications; Z98.890 Other specified postprocedural states; Z87.891 Personal history of nicotine dependence; Y92.89 Other specified places as the place of occurrence of the external cause

== ENCOUNTER → 2024-02-21 | Outpatient (CLI) | payer OTHER ==
[2024-02-21 12:53] LABS: BILIRUBIN Negative (Negative); BLOOD Negative (Negative); CLARITY Clear (Clear); COLOR Yellow (Yellow); GLUCOSE 3+ (Negative); KETONE Negative (Negative); LEUKO ESTERASE 1+ (Negative); NITRITE Negative (Negative)
[2024-02-21 12:58] LABS: BASO % 0.3 % (0.0-1.0); EOS # 0.3 10*3/uL (0.0-0.4); EOS % 4.3 % (1.0-4.0); HEMATOCRIT 41.9 % (42.0-52.0); MEAN CELL VOLUME 89.3 fl (80.0-94.0); MEAN CORPUSCULAR HGB 27.5 pg (27.0-31.0); MEAN CORPUSCULAR HGB CONC 30.8 g/dl (33.0-37.0); MEAN PLATELET VOLUME 10.6 fl (9.6-12.3); MONO # 0.8 10*3/uL (0.1-1.0); MONO % 12.9 % (3.0-9.0); NEUT # 3.1 10*3/uL (2.3-7.9); NEUT % 50.6 % (47.0-73.0); PLATELET COUNT AUTOMATED 278 10*3/uL (130-400); RED BLOOD COUNT 4.69 10*6/uL (4.50-5.90); RED CELL DISTRI WIDTH 15.4 % (0-14.5); WHITE BLOOD COUNT 6.1 10*3/uL (4.8-10.8)
[2024-02-21 13:15] LABS: POTASSIUM 4.6 mmol/L (3.4-5.1); TOTAL PROTEIN 7.1 gm/dL (6.0-8.0)
[2024-02-21 14:13] LABS: HYALINE CAST 0-2; RBC 0-2 rbc/hpf (0-2); WBC 16-20 wbc/hpf (0-5)
== END | disposition home or self-care (01) ==
LOC: MRI 12:23
PROVIDERS: ATTEND Urology
DX: Z12.5 Encounter for screening for malignant neoplasm of prostate (principal); D40.0 Neoplasm of uncertain behavior of prostate; R53.83 Other fatigue

== ENCOUNTER → 2024-03-06 | Outpatient (CLI) | payer OTHER ==
[2024-03-06 12:56] LABS: POTASSIUM 4.5 mmol/L (3.4-5.1)
== END | disposition home or self-care (01) ==
LOC: LAB 12:08
PROVIDERS: ATTEND Internal Medicine Cardiovascular Disease
DX: I50.32 Chronic diastolic (congestive) heart failure (principal)

== ENCOUNTER → 2024-09-12 | Outpatient (CLI) | payer OTHER ==
[2024-09-12 10:47] LABS: BASO # 0.1 10*3/uL (0.0-0.1); BASO % 0.7 % (0.0-1.0); EOS # 0.2 10*3/uL (0.0-0.4); EOS % 2.3 % (1.0-4.0); HEMATOCRIT 35.4 % (42.0-52.0); MEAN CELL VOLUME 84.5 fl (80.0-94.0); MEAN CORPUSCULAR HGB 26.7 pg (27.0-31.0); MEAN CORPUSCULAR HGB CONC 31.6 g/dl (33.0-37.0); MONO # 0.7 10*3/uL (0.1-1.0); MONO % 10.1 % (3.0-9.0); NEUT # 4.7 10*3/uL (2.3-7.9); NEUT % 64.3 % (47.0-73.0); PLATELET COUNT AUTOMATED 201 10*3/uL (130-400); RED BLOOD COUNT 4.19 10*6/uL (4.50-5.90); RED CELL DISTRI WIDTH 13.9 % (0-14.5); WHITE BLOOD COUNT 7.2 10*3/uL (4.8-10.8)
[2024-09-12 11:18] LABS: TOTAL PROTEIN 6.8 gm/dL (6.0-8.0)
== END | disposition home or self-care (01) ==
LOC: LAB 10:30
PROVIDERS: ATTEND Nurse Practitioner
DX: Z01.812 Encounter for preprocedural laboratory examination (principal)

== ENCOUNTER → 2024-10-25 | Outpatient (CLI) | payer OTHER | END | disposition home or self-care (01) | LOC: CT 12:59 | PROVIDERS: ATTEND Urology | DX: N40.0 Benign prostatic hyperplasia without lower urinary tract symptoms (principal); J98.4 Other disorders of lung; N28.9 Disorder of kidney and ureter, unspecified ==